=== PATIENT | female | born 1990 | race American Indian/Alaskan Native ===

== ENCOUNTER 2019-07-20 18:19 | Emergency (ER) | payer MEDICAID ==
[2019-07-20 18:47] VITALS: BP 151/97
--- NOTE | 2019-07-20 18:49 | Emergency Department Report ---
Blank Doc - Documentation Documentation: 29-year-old female that presents with SOB, cough, and body aches with fever and chills. This initial assessment/diagnostic orders/clinical plan/treatment(s) is/are subject to change based on patient's health status, clinical progression and re- assessment by fellow clinical providers in the ED. Further treatment and workup at subsequent clinical providers discretion. Patient/guardians urged not to elope from the ED as their condition may be serious if not clinically assessed and managed. Initial orders include: 1- Patient sent to [facility] for further evaluation and treatment 2- cxr 3- flu swab 4- motrin-RN to repeat vitals
[2019-07-20] MEDS ORDERED: ACETAMINOPHEN 325 MG TAB PO ONE (18:50)
--- NOTE | 2019-07-20 19:45 | XRay Report ---
CHEST PA AND LATERAL VIEWS INDICATION: cough. COMPARISON: None. FINDINGS: Support devices: None. Heart: Within normal limits. Lungs/Pleura: No acute pulmonary or pleural findings. IMPRESSION: 1. No acute findings. Signer Name: Juan Khan MD Signed: 07/20/2019 7:40 PM Workstation Name: [id number]
--- NOTE | 2019-07-20 20:04 | Emergency Department Report ---
- General Chief Complaint: Upper Respiratory Infection Stated Complaint: DRY COUGH/SOB Time Seen by Provider: 07/20/19 18:24 Source: patient Mode of arrival: Ambulatory Limitations: No Limitations - History of Present Illness Initial Comments: 29-year-old -[place] Citizen female patient without significant past medical history presents with complaints of 2 weeks of fatigue and sudden onset of cough, fever, shortness of breath, body aches/chills, and nausea/vomiting/diarrhea this morning. She denies any hemoptysis, chest pain, abdominal pain, recent history of travel outside the [place]/contact with individuals with recent travel, or contact with individuals who have known/suspected Covid19. Patient states she did receive a flu vaccination this year. MD Complaint: fever, cough, rhinorrhea - Related Data Previous Rx's Medication Instructions Recorded Last Taken Type Azithromycin [Zithromax TAB] 250 mg PO QDAY 5 Days #6 tablet 07/20/19 Unknown Rx Benzonatate [Tessalon Perles] 200 mg PO Q8HR #30 capsule 07/20/19 Unknown Rx Ondansetron [Zofran Odt] 4 mg PO Q8HR PRN #20 tab.rapdis 07/20/19 Unknown Rx Prednisone [predniSONE 5 mg (6-Day 5 mg PO .TAPER #1 tab.ds.pk 07/20/19 Unknown Rx Pack, 21 Tabs)] Allergies Allergy/AdvReac Type Severity Reaction Status Date / Time ibuprofen Allergy Unknown Verified 07/20/19 18:47 tramadol Allergy Unknown Verified 07/20/19 18:47 ED Review of Systems ROS: Stated complaint: DRY COUGH/SOB Other details as noted in HPI Constitutional: chills, fever, malaise, weakness. denies: diaphoresis ENT: denies: throat pain Respiratory: cough, shortness of breath Cardiovascular: denies: chest pain Gastrointestinal: nausea, vomiting, diarrhea. denies: abdominal pain Genitourinary: denies: urgency, dysuria, frequency, hematuria Musculoskeletal: denies: back pain Skin: denies: rash, lesions Neurological: headache ED Past Medical Hx - Past Medical History Previous Medical History?: No - Surgical History Past Surgical History?: No - Social History Smoking Status: Current Every Day Smoker Substance Use Type: Alcohol - Medications Home Medications: Home Medications Medication Instructions Recorded Confirmed Last Taken Type Azithromycin [Zithromax TAB] 250 mg PO QDAY 5 Days #6 tablet 07/20/19 Unknown Rx Benzonatate [Tessalon Perles] 200 mg PO Q8HR #30 capsule 07/20/19 Unknown Rx Ondansetron [Zofran Odt] 4 mg PO Q8HR PRN #20 tab.rapdis 07/20/19 Unknown Rx Prednisone [predniSONE 5 mg (6-Day 5 mg PO .TAPER #1 tab.ds.pk 07/20/19 Unknown Rx Pack, 21 Tabs)] ED Physical Exam - General Limitations: No Limitations General appearance: alert, in no apparent distress - Head Head exam: Present: atraumatic, normocephalic - Eye Eye exam: Present: normal appearance - ENT ENT exam: Present: normal orophraynx, mucous membranes moist - Neck Neck exam: Present: normal inspection, full ROM. Absent: tenderness - Respiratory Respiratory exam: Present: rhonchi. Absent: respiratory distress, rales - Cardiovascular Cardiovascular Exam: Present: regular rate, normal rhythm - GI/Abdominal GI/Abdominal exam: Present: soft. Absent: distended, tenderness - Extremities Exam Extremities exam: Present: normal inspection - Back Exam Back exam: Present: normal inspection - Neurological Exam Neurological exam: Present: alert, oriented X3 - Psychiatric Psychiatric exam: Present: normal affect, normal mood - Skin Skin exam: Present: warm, dry, intact, normal color. Absent: rash, cyanosis, diaphoretic, ecchymosis ED Course Vital Signs 07/20/19 07/20/19 07/20/19 18:45 20:05 20:18 Temperature 100.3 F H 98.8 F Pulse Rate 121 H 83 Respiratory 22 20 17 Rate Blood Pressure 151/97 O2 Sat by Pulse 100 100 Oximetry ED Medical Decision Making - Radiology Data Radiology results: report reviewed CHEST PA AND LATERAL VIEWS INDICATION: cough. COMPARISON: None. FINDINGS: Support devices: None. Heart: Within normal limits. Lungs/Pleura: No acute pulmonary or pleural findings. IMPRESSION: 1. No acute findings. - Medical Decision Making Patient here with complaints of sudden onset of fever/chills/body aches, cough, and shortness of breath today. Patient did receive a flu vaccine this season. Rapid flu was negative. Chest x-ray is normal. She denies any covid19 contact or travel risk factors. Vitals are normal. She is satting at 100% on room air. Mild rhonchi noted on exam. Patient given DuoNeb and Solu-Medrol. She states she is feeling better and less short of breath. She is well-appearing and stable for discharge home. Will treat for viral syndrome and bronchitis. Recommend follow-up with primary care provider in 3 days. Discussed strict return precautions in great detail with patient who verbalized understanding. Critical care attestation.: If time is entered above; I have spent that time in minutes in the direct care of this critically ill patient, excluding procedure time. ED Disposition Clinical Impression: Viral syndrome Acute bronchitis Qualifiers: Bronchitis organism: other organism Qualified Code(s): J20.8 - Acute bronchitis due to other specified organisms Disposition: - TO HOME OR SELFCARE Is pt being admited?: No Condition: Stable Instructions: Acute Bronchitis (ED), Viral Syndrome (ED) Prescriptions: Prednisone [predniSONE 5 mg (6-Day Pack, 21 Tabs)] 5 mg PO .TAPER #1 tab.ds.pk Benzonatate [Tessalon Perles] 200 mg PO Q8HR #30 capsule Azithromycin [Zithromax TAB] 250 mg PO QDAY 5 Days #6 tablet Ondansetron [Zofran Odt] 4 mg PO Q8HR PRN #20 tab.rapdis PRN Reason: Nausea Referrals: JIM MELCHOR [Other] - 3-5 Days Forms: Work/School Release Form(ED)
[2019-07-20] MEDS ORDERED: IPRATROPIUM/ALBUTEROL SULFATE 3 ML AMPUL.NEB IH ONE (20:06)
[2019-07-20] MEDS ORDERED: methylPREDNISolone Sod Succinate 125 MG/2 ML INJ IM ONE (20:06)
== END 2019-07-20 21:20 | disposition home or self-care (01) ==
LOC: ED 18:19
DX: J20.8 Acute bronchitis due to other specified organisms (principal); B34.9 Viral infection, unspecified; F17.200 Nicotine dependence, unspecified, uncomplicated; Z79.899 Other long term (current) drug therapy; Z79.2 Long term (current) use of antibiotics; Z88.8 Allergy status to other drugs, medicaments and biological substances
CPT/HCPCS: 71046; 87400; 94640; 96372; 99284; J2930

== ENCOUNTER 2020-08-02 11:10 | Emergency (ER) | payer MEDICAID ==
--- NOTE | 2020-08-02 13:28 | XRay Report ---
RIGHT HAND 3 VIEW(S) INDICATION / CLINICAL INFORMATION: PAIN AND SWELLING COMPARISON: None available. FINDINGS: BONES / JOINT(S): No acute fracture or subluxation. Mild arthrosis noted at the base of the fifth met acarpal. Contracture noted of the small finger. SOFT TISSUES: No significant abnormality. ADDITIONAL FINDINGS: None. Signer Name: Adam Roldan MD Signed: 08/02/2020 1:23 PM Workstation Name: [id number]
[2020-08-02] MEDS ORDERED: ACETAMINOPHEN 325 MG TAB PO ONE (13:45)
--- NOTE | 2020-08-02 13:50 | Emergency Department Report ---
ED Upper Extremity Inj HPI - General Chief Complaint: Extremity Injury, Upper Stated Complaint: MIDDLE FINGER/INJURED Time Seen by Provider: 08/02/20 13:41 Source: patient Mode of arrival: Ambulatory Limitations: No Limitations - History of Present Illness Initial Comments: Patient is a 30-year-old female presents emergency room with complaints of right middle finger injury that occurred yesterday. She states that she was playing basketball and her another person were going for the ball and she accidentally jammed her finger against a basketball. She states that she did have a fracture of this right hand approximately 5 years ago. She states that she did not have to have surgery for it. She states that she is right-hand dominant. Numbness o r weakness. She has pain with movement. No other past medical history. She has an allergy to ibuprofen and tramadol. - Related Data Previous Rx's Medication Instructions Recorded Last Taken Type Azithromycin [Zithromax TAB] 250 mg PO QDAY 5 Days #6 tablet 07/20/19 Unknown Rx Benzonatate [Tessalon Perles] 200 mg PO Q8HR #30 capsule 07/20/19 Unknown Rx Ondansetron [Zofran Odt] 4 mg PO Q8HR PRN #20 tab.rapdis 07/20/19 Unknown Rx Prednisone [predniSONE 5 mg (6-Day 5 mg PO .TAPER #1 tab.ds.pk 07/20/19 Unknown Rx Pack, 21 Tabs)] Acetaminophen [Tylenol] 650 mg PO Q8HR PRN #20 capsule 08/02/20 Unknown Rx Allergies Allergy/AdvReac Type Severity Reaction Status Date / Time ibuprofen Allergy Unknown Verified 08/02/20 12:22 tramadol Allergy Unknown Verified 08/02/20 12:22 ED Review of Systems ROS: Stated complaint: MIDDLE FINGER/INJURED Other details as noted in HPI Comment: All other systems reviewed and negative ED Past Medical Hx - Past Medical History Previous Medical History?: No - Surgical History Past Surgical History?: No - Social History Smoking Status: Never Smoker Substance Use Type: None - Medications Home Medications: Home Medications Medication Instructions Recorded Confirmed Last Taken Type Azithromycin [Zithromax TAB] 250 mg PO QDAY 5 Days #6 tablet 07/20/19 Unknown Rx Benzonatate [Tessalon Perles] 200 mg PO Q8HR #30 capsule 07/20/19 Unknown Rx Ondansetron [Zofran Odt] 4 mg PO Q8HR PRN #20 tab.rapdis 07/20/19 Unknown Rx Prednisone [predniSONE 5 mg (6-Day 5 mg PO .TAPER #1 tab.ds.pk 07/20/19 Unknown Rx Pack, 21 Tabs)] Acetaminophen [Tylenol] 650 mg PO Q8HR PRN #20 capsule 08/02/20 Unknown Rx ED Physical Exam - General Limitations: No Limitations General appearance: alert, in no apparent distress - Head Head exam: Present: atraumatic, normocephalic - Eye Eye exam: Present: normal appearance - ENT ENT exam: Present: mucous membranes moist - Respiratory Respiratory exam: Absent: respiratory distress, accessory muscle use - Extremities Exam Extremities exam: Present: other (ttp to the right proximal middle finger, no deformity, mild edema, no skin changes, FROM of the right elbow, wrist, hand, digits, no snuffbox ttp, neurovascularly intact) - Neurological Exam Neurological exam: Present: alert, oriented X3 - Psychiatric Psychiatric exam: Present: normal affect, normal mood - Skin Skin exam: Present: warm, dry, intact ED Course Vital Signs 08/02/20 08/02/20 12:24 14:37 Temperature 99.1 F Pulse Rate 91 H 60 Respiratory 20 16 Rate Blood Pressure 138/92 Blood Pressure 111/70 [Left] O2 Sat by Pulse 99 99 Oximetry ED Medical Decision Making - Radiology Data Radiology results: report reviewed Ordering Physician: ERIBERTO MARTIN MD Date of Service: 08/02/20 Procedure(s): XR hand 3+V RT Accession Number(s): [id number] cc: ERIBERTO MARTIN MD Fluoro Time In Minutes: RIGHT HAND 3 VIEW(S) INDICATION / CLINICAL INFORMATION: PAIN AND SWELLING COMPARISON: None available. FINDINGS: BONES / JOINT(S): No acute fracture or subluxation. Mild arthrosis noted at the base of the fifth metacarpal. Contracture noted of the small finger. SOFT TISSUES: No significant abnormality. ADDITIONAL FINDINGS: None. Signer Name: Oswaldo Michael MD Signed: 08/02/2020 1:23 PM Workstation Name: [id number] Transcribed By: Dictated By: OSWALDO MICHAEL Electronically Authenticated By: OSWALDO MICHAEL Signed Date/Time: 08/02/20 1323 DD/ 1321 TD/TT: - Medical Decision Making Patient is a 30-year-old female presents emergency room with complaints of right middle finger injury that occurred yesterday. She states that she was playing basketball and her another person were going for the ball and she accidentally jammed her finger against a basketball. She states that she did have a fracture of this right hand approximately 5 years ago. She states that she did not have to have surgery for it. She states that she is right-hand dominant. Numbness or weakness. She has pain with movement. No other past medical history. She has an allergy to ibuprofen and tramadol. VSS. on exam: ttp to the right proximal middle finger, no deformity, mild edema, no skin changes, FROM of the right elbow, wrist, hand, digits, no snuffbox ttp, neurovascularly intact. XR right hand: BONES / JOINT(S): No acute fracture or subluxation. Mild arthrosis noted at the base of the fifth metacarpal. Contracture noted of the small finger. SOFT TISSUES: No significant abnormality. ADDITIONAL FINDINGS: None. Discussed all results with patient and answered questions. Symptoms likely related to finger sprain. Patient placed in finger splint by nurse and remained neurovascularly intact. advised patient Please take medication as prescribed as needed. Follow-up with orthopedic doctor. Return to emergency room for new or worsening symptoms. - Differential Diagnosis Strain, sprain, fracture, dislocation, contusion, trigger finger, tendiniti Critical care attestation.: If time is entered above; I have spent that time in minutes in the direct care o f this critically ill patient, excluding procedure time. ED Disposition Clinical Impression: Finger sprain Qualifiers: Encounter type: initial encounter Finger: middle finger Sprain of finger site: unspecified site Laterality: right Qualified Code(s): S63.612A - Unspecified sprain of right middle finger, initial encounter Disposition: TO HOME OR SELFCARE Is pt being admited?: No Does the pt Need Aspirin: No Condition: Stable Instructions: Finger Sprain, Adult, [id number] Additional Instructions: Please take medication as prescribed as needed. Follow-up with orthopedic doctor. Return to emergency room for new or worsening symptoms. Prescriptions: Acetaminophen [Tylenol] 650 mg PO Q8HR PRN #20 capsule PRN Reason: pain Referrals: [facility] [Provider Group] - 2-3 Days ANGELO CORDOVA MD [Staff Physician] - 2-3 Days Time of Disposition: 13:49 Print Language: SERBIAN
[2020-08-02 14:38] VITALS: BP 111/70
== END 2020-08-02 14:39 | disposition home or self-care (01) ==
LOC: ED 11:10
DX: S63.612A Unspecified sprain of right middle finger, initial encounter (principal); Z79.2 Long term (current) use of antibiotics; Z79.899 Other long term (current) drug therapy; Z88.8 Allergy status to other drugs, medicaments and biological substances; X58.XXXA Exposure to other specified factors, initial encounter; Y93.67 Activity, basketball; Y92.89 Other specified places as the place of occurrence of the external cause; Y99.8 Other external cause status

== ENCOUNTER 2020-12-11 20:32 | Emergency (ER) | payer MEDICAID ==
[2020-12-11 22:24] VITALS: BP 130/73
--- NOTE | 2020-12-11 22:58 | XRay Report ---
Right shoulder-3 views INDICATION: Injury. COMPARISON: None. IMPRESSION: No acute osseous abnormality. Soft tissues are normal. Normal alignment. No significa nt DJD. Signer Name: Max Cutler MD Signed: 12/11/2020 10:54 PM Workstation Name: [id number]
--- NOTE | 2020-12-12 01:37 | Emergency Department Report ---
HPI - General Chief Complaint: Extremity Injury, Upper - HPI HPI: This is a 30-year-old -[place] female presents to the emergency department with a complaint of pain in the right shoulder that started after she was pulling/moving something while at work this evening. She is right-hand dominant. She denies any swelling, skin color change. She says that sometimes the pain will shoot down the right arm and has caused some tingling in her hand. She did not take anything for symptoms prior to presentation today. She denies any past medical history. ED Past Medical Hx - Past Medical History Previous Medical History?: No - Surgical History Past Surgical History?: No - Social History Smoking Status: Never Smoker Substance Use Type: None - Medications Home Medications: Home Medications Medication Instructions Recorded Confirmed Last Taken Type Azithromycin [Zithromax TAB] 250 mg PO QDAY 5 Days #6 tablet 07/20/19 Unknown Rx Benzonatate [Tessalon Perles] 200 mg PO Q8HR #30 capsule 07/20/19 Unknown Rx Ondansetron [Zofran Odt] 4 mg PO Q8HR PRN #20 tab.rapdis 07/20/19 Unknown Rx Prednisone [predniSONE 5 mg (6-Day 5 mg PO .TAPER #1 tab.ds.pk 07/20/19 Unknown Rx Pack, 21 Tabs)] Acetaminophen [Tylenol] 650 mg PO Q8HR PRN #20 capsule 08/02/20 Unknown Rx Cyclobenzaprine [Flexeril] 10 mg PO TID PRN #12 tablet 12/12/20 Unknown Rx ED Review of Systems ROS: Stated complaint: PAIN IN RT SHOULDER Other details as noted in HPI Comment: All other systems reviewed and negative Constitutional: denies: chills, fever Respiratory: denies: cough, shortness of breath Cardiovascular: denies: chest pain, palpitations Gastrointestinal: denies: abdominal pain Musculoskeletal: arthralgia, myalgia. denies: joint swelling Skin: denies: rash, lesions Neurological: denies: weakness, numbness Physical Exam - Physical Exam Vital Signs: Vital Signs 12/11/20 22:20 Temperature 98.8 F Pulse Rate 60 Respiratory 18 Rate Blood Pressure 130/73 O2 Sat by Pulse 100 Oximetry Physical Exam: GENERAL: The patient is well-developed well-nourished. HENT: Normocephalic. Atraumatic. Patient has moist mucous membranes. EYES: Extraocular motions are intact. NECK: Supple. Trachea is midline. CHEST/LUNGS: Clear to auscultation. There is no respiratory distress noted. HEART/CARDIOVASCULAR: Regular. There is no tachycardia. There is no murmur. SKIN: Skin is warm and dry. NEURO: The patient is awake, alert, and oriented. The patient is cooperative. Normal speech. MUSCULOSKELETAL: There is tenderness to palpation along the circumferential right shoulder and along the right side of the trapezius muscle posterior to the shoulder. There is no limitation to range of motion, but the patient has pain with both active and passive range of motion of the right upper extremity. Radial pulse +2/4 and capillary refill less than 2 seconds to the affected right upper extremity. ED Course Vital Signs 12/11/20 22:20 Temperature 98.8 F Pulse Rate 60 Respiratory 18 Rate Blood Pressure 130/73 O2 Sat by Pulse 100 Oximetry ED Medical Decision Making - Radiology Data Radiology results: image reviewed interpreted by me: X-ray of the right shoulder does not show any fracture, dislocation, or any acute process. - Medical Decision Making This patient presents to the emergency department with a complaint of right shoulder pain after pulling down on something or lifting something at work earlier in the evening. She is neurovascularly intact. There is reproducible tenderness to palpation along the shoulder and trapezius muscle. X-ray of the right shoulder does not show any fracture, dislocation, or any acute process. The patient was placed in a shoulder sling and given outpatient referral for orthopedist. Critical Care Time: No Critical care attestation.: If time is entered above; I have spent that time in minutes in the direct care of this critically ill patient, excluding procedure time. ED Disposition Clinical Impression: Right shoulder pain Qualifiers: Chronicity: acute Qualified Code(s): M25.511 - Pain in right shoulder Right shoulder strain Qualifiers: Encounter type: initial encounter Qualified Code(s): S46.911A - Strain of unspecified muscle, fascia and tendon at shoulder and upper arm level, right arm, initial encounter Disposition: TO HOME OR SELFCARE Is pt being admited?: No Condition: Stable Instructions: Shoulder Pain Additional Instructions: Please follow-up with an orthopedist in the next few days. I am giving you a referral for 2 different local orthopedic groups, Dr. Lozano and [facility]. You have been prescribed a medication that is sedating and therefore should not be taken prior to driving, working, and responsible for children and in no way should be mixed with alcohol of any quantity. Return to the emergency department with any worsening of your symptoms, new or concerning symptoms not addressed during this current emergency department visit, or with any acute distress. Prescriptions: Cyclobenzaprine [Flexeril] 10 mg PO TID PRN #12 tablet PRN Reason: Muscle Spasm Referrals: ANGELO LOZANO MD [Staff Physician] - 2-3 Days [facility] [Provider Group] - 2-3 Days Forms: Work/School Release Form(ED) Time of Disposition: 01:39
== END 2020-12-12 02:00 | disposition home or self-care (01) ==
LOC: ED 20:32
DX: S46.911A Strain of unspecified muscle, fascia and tendon at shoulder and upper arm level, right arm, initial encounter (principal); M25.511 Pain in right shoulder; X58.XXXA Exposure to other specified factors, initial encounter; Y93.89 Activity, other specified; Y92.89 Other specified places as the place of occurrence of the external cause; Y99.8 Other external cause status
CPT/HCPCS: 99283

== ENCOUNTER 2020-12-26 13:15 | Emergency (ER) | payer MEDICAID ==
--- NOTE | 2020-12-26 14:22 | Emergency Department Report ---
Blank Doc - Documentation Documentation: 30-year-old female that presents with left-sided chest pain, shortness of breath with radiation to left shoulder area. 1- This is a initial triage assessment/medical screening only. Full assessment and work-up will be completed once the patient is in proper hospital gown, ED b ed and in a private room setting. This initial assessment/diagnostic orders/clinical plan/ treatment(s) is/are subject to change based on pt's health status, clinical progression and re-assessment by fellow clinical providers in the ED. Further treatment and workup at subsequent clinical providers discretion. Patient/guardians urged not to elope from ED as their condition may be serious if not clinically assessed and managed. 2-cardiac work-up
[2020-12-26 14:25] VITALS: BP 146/89
--- NOTE | 2020-12-26 15:53 | XRay Report ---
CHEST 2 VIEWS INDICATION / CLINICAL INFORMATION: Chest Pain. Shortness of breath, chills. COMPARISON: 2 views of the chest from 07/20/2019. FINDINGS: SUPPORT DEVICES: None. HEART / MEDIASTINUM: No significant abnormality. LUNGS / PLEURA: No significant pulmonary abnormality. No significant pleural effusion. No pneumothora x. ADDITIONAL FINDINGS: No significant additional findings. IMPRESSION: 1. No acute abnormality of the chest. Signer Name: Jak aSrah MD Signed: 12/26/2020 3:49 PM Workstation Name: [id number]
[2020-12-26 16:04] LABS: Basophils # (Auto) 0.1 K/mm3 (0.0-0.1); Basophils % (Auto) 0.8 % (0.0-1.8); Eosinophils # (Auto) 0.1 K/mm3 (0.0-0.4); Eosinophils % (Auto) 0.7 % (0.0-4.3); Hematocrit 41.3 % (30.3-42.9); Hemoglobin 13.5 gm/dl (10.1-14.3); Lymphocytes # (Auto) 2.8 K/mm3 (1.2-5.4); Lymphocytes % (Auto) 33.5 % (13.4-35.0); Mean Corpuscular HGB Conc 33 % (30-34); Mean Corpuscular Volume 85 fl (79-97); Monocytes # (Auto) 0.5 K/mm3 (0.0-0.8); Monocytes % (Auto) 5.8 % (0.0-7.3); Platelet Count 410 K/mm3 (140-440); Red Blood Count 4.83 M/mm3 (3.65-5.03); Red Cell Distribution Width 13.4 % (13.2-15.2)
[2020-12-26 16:14] LABS: INR 0.96 (0.87-1.13)
[2020-12-26 16:15] LABS: Partial Thromboplastin Time 34.4 Sec. (24.2-36.6)
[2020-12-26 16:21] LABS: Alanine Aminotransferase 9 units/L (7-56); Albumin 4.5 g/dL (3.9-5); Blood Urea Nitrogen 7 mg/dL (7-17); Calcium 9.9 mg/dL (8.4-10.2); Hemolysis Index 8
[2020-12-26 16:22] LABS: BUN/Creatinine Ratio 10
--- NOTE | 2020-12-26 22:21 | Emergency Department Report ---
ED General Adult HPI - General Chief complaint: Chest Pain Stated complaint: CP/NUMBNESS Time Seen by Provider: 12/26/20 14:21 Source: patient Mode of arrival: Wheelchair Limitations: No Limitations - History of Present Illness Initial comments: Patient is a 30-year-old -A[place] female with no past medical history presents to the ED with complaint of acute onset persistent nausea and vomiting, diffuse body aches and pains specifically left arm pain, left lower leg pain, left hip pain, diffuse back pain and left-sided chest wall pain and epigastric pain for the last 3 days. Patient states that she was initially evaluated in this ED for nausea and vomiting and states that she has not been able to keep anything down after being discharged from the ED. Patient states that she was not discharged home on any medications for nausea and vomiting. Patient states that she also has an active lifestyle where she performs heavy lifting of weig hts and other physical training exercises. Patient states that the body aches and pains have been persistent and worse especially with the persistent nausea and vomiting. Patient however states that she has not had any nausea or vomiting in the last 24 hours but has had no appetite. Patient denies dizziness, syncope, fever, chills, shortness of breath, headache, diarrhea, dysuria, urinary frequency and urgency, vaginal bleeding, vaginal discharge, cough, nasal and sinus congestion or sore throat. MD Complaint: left arm pain; left leg pain; nausea and vomiting; left-sided chest pain -: Sudden, days(s) (3) Location: chest, abdomen Radiation: non-radiation Severity scale (0 -10): 5 Quality: aching, sharp Consistency: constant Improves with: none Worsens with: movement Associated Symptoms: denies other symptoms, chest pain, loss of appetite, malaise, nausea/vomiting. denies: confusion, cough, diaphoresis, fever/chills, headaches, rash, seizure, shortness of breath, syncope, weakness, other Treatments Prior to Arrival: none - Related Data Previous Rx's Medication Instructions Recorded Last Taken Type Azithromycin [Zithromax TAB] 250 mg PO QDAY 5 Days #6 tablet 07/20/19 Unknown Rx Benzonatate [Tessalon Perles] 200 mg PO Q8HR #30 capsule 07/20/19 Unknown Rx Prednisone [predniSONE 5 mg (6-Day 5 mg PO .TAPER #1 tab.ds.pk 07/20/19 Unknown Rx Pack, 21 Tabs)] Acetaminophen [Tylenol] 650 mg PO Q8HR PRN #20 capsule 08/02/20 Unknown Rx Cyclobenzaprine [Flexeril] 10 mg PO TID PRN #12 tablet 12/12/20 Unknown Rx Acetaminophen [Tylenol] 500 mg PO Q6HR PRN #30 tablet 12/26/20 Unknown Rx Baclofen 20 mg PO Q12H PRN #30 tablet 12/26/20 Unknown Rx Famotidine [Pepcid] 20 mg PO BID #60 tablet 12/26/20 Unknown Rx Ondansetron [Zofran ODT TAB] 4 mg PO Q8HR PRN #20 tab.rapdis 12/26/20 Unknown Rx Allergies Allergy/AdvReac Type Severity Reaction Status Date / Time ibuprofen Allergy Unknown Verified 12/26/20 14:18 tramadol Allergy Unknown Verified 12/26/20 14:18 ED Review of Systems ROS: Stated complaint: CP/NUMBNESS Other details as noted in HPI Constitutional: denies: chills, fever Eyes: denies: eye pain, eye discharge, vision change ENT: denies: ear pain, throat pain Respiratory: denies: cough, shortness of breath, wheezing Cardiovascular: chest pain (left sided chest wall pain). denies: palpitations Endocrine: no symptoms reported Gastrointestinal: nausea, vomiting. denies: abdominal pain, diarrhea Genitourinary: denies: urgency, dysuria, discharge Musculoskeletal: back pain (upper and lower back pain), arthralgia (left leg and hip pain). denies: joint swelling Skin: denies: rash, lesions Neurological: denies: headache, weakness, paresthesias Psychiatric: denies: anxiety, depression Hematological/Lymphatic: denies: easy bleeding, easy bruising ED Past Medical Hx - Past Medical History Previous Medical History?: No - Surgical History Past Surgical History?: No - Social History Smoking Status: Never Smoker Substance Use Type: None - Medications Home Medications: Home Medications Medication Instructions Recorded Confirmed Last Taken Type Azithromycin [Zithromax TAB] 250 mg PO QDAY 5 Days #6 tablet 07/20/19 Unknown Rx Benzonatate [Tessalon Perles] 200 mg PO Q8HR #30 capsule 07/20/19 Unknown Rx Prednisone [predniSONE 5 mg (6-Day 5 mg PO .TAPER #1 tab.ds.pk 07/20/19 Unknown Rx Pack, 21 Tabs)] Acetaminophen [Tylenol] 650 mg PO Q8HR PRN #20 capsule 08/02/20 Unknown Rx Cyclobenzaprine [Flexeril] 10 mg PO TID PRN #12 tablet 12/12/20 Unknown Rx Acetaminophen [Tylenol] 500 mg PO Q6HR PRN #30 tablet 12/26/20 Unknown Rx Baclofen 20 mg PO Q12H PRN #30 tablet 12/26/20 Unknown Rx Famotidine [Pepcid] 20 mg PO BID #60 tablet 12/26/20 Unknown Rx Ondansetron [Zofran ODT TAB] 4 mg PO Q8HR PRN #20 tab.rapdis 12/26/20 Unknown Rx ED Physical Exam - General Limitations: No Limitations General appearance: alert, in no apparent distress - Head Head exam: Present: atraumatic, normocephalic, normal inspection - Eye Eye exam: Present: normal appearance, PERRL, EOMI Pupils: Present: normal accommodation - ENT ENT exam: Present: normal exam, normal orophraynx, mucous membranes moist, TM's normal bilaterally, normal external ear exam - Neck Neck exam: Present: normal inspection, full ROM - Respiratory Respiratory exam: Present: normal lung sounds bilaterally, chest wall tenderness (Palpable reproducible diffuse left-sided chest wall tenderness). Absent: r espiratory distress, wheezes, rales, rhonchi, stridor, accessory muscle use, decreased breath sounds, prolonged expiratory - Cardiovascular Cardiovascular Exam: Present: regular rate, normal rhythm, normal heart sounds. Absent: systolic murmur, diastolic murmur, rubs, gallop - GI/Abdominal GI/Abdominal exam: Present: soft, normal bowel sounds. Absent: tenderness, guarding, hyperactive bowel sounds, hypoactive bowel sounds - Extremities Exam Extremities exam: Present: normal inspection, full ROM, tenderness (Palpable left shoulder and left hip tenderness), normal capillary refill - Back Exam Back exam: Present: normal inspection, full ROM, tenderness (Palpable left-sided mid posterior thoracic and lumbosacral paraspinal musculoskeletal tenderness), muscle spasm, paraspinal tenderness. Absent: CVA tenderness (R), CVA tenderness (L), vertebral tenderness - Neurological Exam Neurological exam: Present: alert, oriented X3, CN II-XII intact, normal gait, reflexes normal - Psychiatric Psychiatric exam: Present: normal affect, normal mood, anxious - Skin Skin exam: Present: warm, dry, intact, normal color. Absent: rash ED Course Vital Signs 12/26/20 14:23 Temperature 98.6 F Pulse Rate 94 H Respiratory 20 Rate Blood Pressure 146/89 O2 Sat by Pulse 100 Oximetry ED Medical Decision Making - Lab Data Result diagrams: 12/26/20 15:23 12/26/20 15:23 - EKG Data EKG shows normal: sinus rhythm Rate: normal - EKG Data Interpretation: normal EKG - Radiology Data Radiology results: report reviewed, image reviewed [facility] [address] [place] [address] XRay Report Signed Patient: JOSE PAULA MR#: [id number] : 1990 Acct:[id number] Age/Sex: 30 / F ADM Date: 12/26/20 Loc: ED Attending Dr: Ordering Physician: NAT CRANE NP Date of Service: 12/26/20 Procedure(s): XR chest routine 2V Accession Number(s): [id number] cc: NAT CRANE NP Fluoro Time In Minutes: CHEST 2 VIEWS INDICATION / CLINICAL INFORMATION: Chest Pain. Shortness of breath, chills. COMPARISON: 2 views of the chest from 07/20/2019. FINDINGS: SUPPORT DEVICES: None. HEART / MEDIASTINUM: No significant abnormality. LUNGS / PLEURA: No significant pulmonary abnormality. No significant pleural effusion. No pneumothorax. ADDITIONAL FINDINGS: No significant additional findings. IMPRESSION: 1. No acute abnormality of the chest. Signer Name: Jak Sarah MD Signed: 12/26/2020 3:49 PM Workstation Name: [id number] Transcribed By: MN Dictated By: Jak Sarah MD Electronically Authenticated By: Jak Sarah MD Signed Date/Time: 12/26/201548 DD/ 48 TD/TT: - Medical Decision Making This is a 30-year-old -Azerbaij[place] female with no past medical history presents to the ED with complaint of acute onset persistent nausea and vomiting, diffuse body aches and pains specifically left arm pain, left lower leg pain, left hip pain, diffuse back pain and left-sided chest wall pain and epigastric pain for the last 3 days. Patient states that she was initially evaluated in this ED for nausea and vomiting and states that she has not been able to keep anything down after being discharged from the ED. Patient states that she was not discharged home on any medications for nausea and vomiting. Patient states that she also has an active lifestyle where she performs heavy lifting of weights and other physical training exercises. Patient states that the body aches and pains have been persistent and worse especially with the persistent nausea and vomiting. Patient however states that she has not had any nausea or vomiting in the last 24 hours but has had no appetite. In the ED, patient is alert and oriented x3 and is not in any distress. Lab test results were reviewed and are all nonactionable. Chest x-ray showed no acute cardiopulmonary abnormalities or pneumonitis. EKG shows normal sinus rhythm with no acute ST or T wave abnormalities. Based on the history and physical exam findings, lab test results, chest x-ray and EKG reports, patient symptoms are likely due to muscle spasm or muscle strain given the patient's active lifestyle of heavy lifting of weights, also likely due to viral gastroenteritis. Patient was therefore discharged home on medications and advised to follow-up with her primary care physician in 7 to 10 days for reevaluation or return to the ED immediately if symptoms get worse. - Differential Diagnosis Muscle strain; muscle spasm; gastroenteritis; dehydration; GERD Critical care attestation.: If time is entered above; I have spent that time in minutes in the direct care of this critically ill patient, excluding procedure time. ED Disposition Clinical Impression: Spasm of thoracic back muscle, Nausea and vomiting in adult patient, Acute nonspecific chest pain with low risk of coronary artery disease GERD (gastroesophageal reflux disease) Qualifiers: Esophagitis presence: esophagitis presence not specified Qualified Code(s): K21.9 - Gastro-esophageal reflux disease without esophagitis Disposition: 01 HOME / SELF CARE / HOMELESS Is pt being admited?: No Does the pt Need Aspirin: No Condition: Stable Instructions: Chest Pain (ED), Muscle Cramps and Spasms, [id number], Nons pecific Chest Pain, Adult, [id number], Nausea and Vomiting, Adult, [id number], Gastroesophageal Reflux Disease, Adult, [id number] Additional Instructions: All lab test results were reviewed and are all nonactionable. Therefore take medications with food, drink plenty of fluids and follow-up with your primary care physician in 7 to 10 days for reevaluation. Return to the ED immediately if symptoms get worse. Prescriptions: Acetaminophen [Tylenol] 500 mg PO Q6HR PRN #30 tablet PRN Reason: Pain , Severe (7-10) Baclofen 20 mg PO Q12H PRN #30 tablet PRN Reason: Muscle Spasm Famotidine [Pepcid] 20 mg PO BID #60 tablet Ondansetron [Zofran ODT TAB] 4 mg PO Q8HR PRN #20 tab.rapdis PRN Reason: Nausea And Vomiting Referrals: [facility] [Provider Group] - 7-10 days Time of Disposition: 22:18 Print Language: MACEDONIAN
--- NOTE | 2020-12-27 10:18 | Electrocardiograph Report ---
[facility] Test Date: 2020-12-26 Test Time: 14:28:59 Pat Name: JOSE PAULA Department: Room: Gender: F Airplane Pilot: : 1990 Requested By: NAT CRANE Order Number: [id number] Reading MD: Elie Lehman Measurements Intervals [place] Rate: 81 P: 58 MT: 129 QRS: 45 QRSD: 80 T: 23 QT: 387 QTc: 449 Interpretive Statements Sinus rhythm Probable left atrial enlargement Compared to ECG 12/24/2020 19:16:47 Sinus tachycardia no longer present T-wave abnormality no longer present Electronically Signed On 12-27-2020 10:18:02 EDT by Elie Lehman
== END 2020-12-26 22:31 | disposition home or self-care (01) ==
LOC: ED 13:15
DX: M62.830 Muscle spasm of back (principal); R11.2 Nausea with vomiting, unspecified; R07.9 Chest pain, unspecified; K21.9 Gastro-esophageal reflux disease without esophagitis; Z88.5 Allergy status to narcotic agent; Z88.6 Allergy status to analgesic agent
CPT/HCPCS: 36415; 71046; 80053; 82962; 84484; 84703; 85025; 85610; 85730; 93005; 99283

== ENCOUNTER 2021-04-04 13:17 | Emergency (ER) | payer MEDICAID ==
[2021-04-04 13:34] VITALS: BP 105/68
--- NOTE | 2021-04-04 14:00 | Emergency Department Report ---
ED Headache HPI - General Chief Complaint: Extremity Injury, Upper Stated Complaint: hand injury Time Seen by Provider: 04/04/21 13:40 Source: patient - History of Present Illness Allergies/Adverse Reactions: Allergies ibuprofen Allergy (Verified 12/26/20 14:18) Unknown tramadol Allergy (Verified 12/26/20 14:18) Unknown Home Medications: Ambulatory Orders Azithromycin [Zithromax TAB] 250 mg PO QDAY 5 Days #6 tablet 07/20/19 Benzonatate [Tessalon Perles] 200 mg PO Q8HR #30 capsule 07/20/19 Prednisone [predniSONE 5 mg (6-Day Pack, 21 Tabs)] 5 mg PO .TAPER #1 tab.ds.pk 07/20/19 Acetaminophen [Tylenol] 650 mg PO Q8HR PRN #20 capsule 08/02/20 Cyclobenzaprine [Flexeril] 10 mg PO TID PRN #12 tablet 12/12/20 Acetaminophen [Tylenol] 500 mg PO Q6HR PRN #30 tablet 12/26/20 Baclofen 20 mg PO Q12H PRN #30 tablet 12/26/20 Famotidine [Pepcid] 20 mg PO BID #60 tablet 12/26/20 Ondansetron [Zofran ODT TAB] 4 mg PO Q8HR PRN #20 tab.rapdis 12/26/20 ED Review of Systems ROS: Stated complaint: hand injury Other details as noted in HPI ED Past Medical Hx - Social History Smoking Status: Never Smoker Substance Use Type: None - Medications Home Medications: Home Medications Medication Instructions Recorded Confirmed Last Taken Type Azithromycin [Zithromax TAB] 250 mg PO QDAY 5 Days #6 tablet 07/20/19 Unknown Rx Benzonatate [Tessalon Perles] 200 mg PO Q8HR #30 capsule 07/20/19 Unknown Rx Prednisone [predniSONE 5 mg (6-Day 5 mg PO .TAPER #1 tab.ds.pk 07/20/19 Unknown Rx Pack, 21 Tabs)] Acetaminophen [Tylenol] 650 mg PO Q8HR PRN #20 capsule 08/02/20 Unknown Rx Cyclobenzaprine [Flexeril] 10 mg PO TID PRN #12 tablet 12/12/20 Unknown Rx Acetaminophen [Tylenol] 500 mg PO Q6HR PRN #30 tablet 12/26/20 Unknown Rx Baclofen 20 mg PO Q12H PRN #30 tablet 12/26/20 Unknown Rx Famotidine [Pepcid] 20 mg PO BID #60 tablet 12/26/20 Unknown Rx Ondansetron [Zofran ODT TAB] 4 mg PO Q8HR PRN #20 tab.rapdis 12/26/20 Unknown Rx ED Physical Exam - General Limitations: No Limitations ED Course Vital Signs 04/04/21 04/04/21 13:29 13:46 Temperature 100.1 F H 98.9 F Pulse Rate 87 Respiratory 16 Rate Blood Pressure 105/68 O2 Sat by Pulse 100 Oximetry Critical care attestation.: If time is entered above; I have spent that time in minutes in the direct care of this critically ill patient, excluding procedure time. ED Disposition Condition: Stable
--- NOTE | 2021-04-04 14:13 | XRay Report ---
RIGHT FINGER 3 VIEWS INDICATION: rt thumb injury. COMPARISON: None. IMPRESSION: 3 views of the right thumb are presented. No acute osseous abnormality or joint patholo gy is detected. The soft tissues are unremarkable. Signer Name: Tim Gonzalez Jr, MD Signed: 04/04/2021 2:07 PM Workstation Name: [id number]
--- NOTE | 2021-04-04 15:09 | Emergency Department Report ---
Upper Extremity - [facility] Chief Complaint: Extremity Injury, Upper Stated Complaint: hand injury Time Seen by Provider: 04/04/21 13:40 Upper Extremity: Right Thumb Occurred When: 2 Days Severity: moderate Symptoms: Yes Pain with Movement, Yes Limited Range of Movement, Yes Swelling, No Deformity, No Numbness, No Weakness, No Bruising/Ecchymosis, No Laceration or Abrasion Other History: The patient was evaluated in the emergency department for symptoms described in the history of present illness. He/she was evaluated in the context of the global COVID-19 pandemic, which necessitated consideration that the patient might be at risk for infection with the virus that causes COVID-19. Institutional protocols and algorithms that pertain to the evaluation of patients at risk for COVID-19 are in a state of rapid change based on information released by regulatory bodies including the CDC and federal and state organizations. These policies and algorithms were followed during the patient's care in the emergency department. Please note that these policies, procedures and recommendations changed on a rapid basis. 31-year-old -Danish female presents to the emergency room complaining of right thumb pain for 2 days. Patient states that her thumb hit someone's knee while playing basketball. Patient states that the pain is getting worse and she is having swelling decided to come in to be evaluated. Patient denies any past medical history no surgeries no meds only allergic to ibuprofen and tramadol. ED Review of Systems ROS: Stated complaint: hand injury Other details as noted in HPI ED Past Medical Hx - Social History Smoking Status: Never Smoker Substance Use Type: None - Medications Home Medications: Home Medications Medication Instructions Recorded Confirmed Last Taken Type Azithromycin [Zithromax TAB] 250 mg PO QDAY 5 Days #6 tablet 07/20/19 Unknown Rx Benzonatate [Tessalon Perles] 200 mg PO Q8HR #30 capsule 07/20/19 Unknown Rx Prednisone [predniSONE 5 mg (6-Day 5 mg PO .TAPER #1 tab.ds.pk 07/20/19 Unknown Rx Pack, 21 Tabs)] Acetaminophen [Tylenol] 650 mg PO Q8HR PRN #20 capsule 08/02/20 Unknown Rx Cyclobenzaprine [Flexeril] 10 mg PO TID PRN #12 tablet 12/12/20 Unknown Rx Acetaminophen [Tylenol] 500 mg PO Q6HR PRN #30 tablet 12/26/20 Unknown Rx Baclofen 20 mg PO Q12H PRN #30 tablet 12/26/20 Unknown Rx Famotidine [Pepcid] 20 mg PO BID #60 tablet 12/26/20 Unknown Rx Ondansetron [Zofran ODT TAB] 4 mg PO Q8HR PRN #20 tab.rapdis 12/26/20 Unknown Rx Acetaminophen/Codeine [Tylenol 1 tab PO Q6H PRN #12 tab 04/04/21 Unknown Rx /Codeine # 3 tab] Upper Extremity Exam - Exam General: Vital signs noted. No distress. Alert and acting appropriately. Head and Torso: No HEENT Abnormality, No Neck Tenderness, No Chest/Lungs Abnormality, No Abdominal Tenderness, No Back Tenderness Shoulder Exam: Yes Normal Range of Motion in Shoulder, No Shoulder Tenderness, No Clavicle Tenderness, No Shoulder Deformity, No AC Joint Tenderness Arm Exam: No Arm/Humerus Tenderness, No Arm Deformity Elbow: No Elbow Tenderness, No Normal Range of Motion in Elbow, No Elbow Deformity Forearm: No Forearm Tenderness, No Forearm Deformity, No Pain with Pronation, No Pain with Supination Wrist: Yes Normal ROM in Wrist, No Wrist Tenderness, No Wrist Deformity, No Snuffbox Tenderness, No Pain with Axial Thumb Compression Hand: Yes Hand Tenderness (Thenar thumb), Yes Digit Tenderness (Thenar thumb), No Hand Deformity, No Normal ROM in Digit(s), No Digit(s) Deformity, No Tendon Dysfunction CMS Exam: No Broken Skin, No Normal Distal Pulses, No Normal Capillary Refill, No Normal Distal Sensation ED Course Vital Signs 04/04/21 04/04/21 13:29 13:46 Temperature 100.1 F H 98.9 F Pulse Rate 87 Respiratory 16 Rate Blood Pressure 105/68 O2 Sat by Pulse 100 Oximetry ED Medical Decision Making - Radiology Data Radiology results: report reviewed [facility] [address] [place] [address] XRay Report Signed Patient: JOSE PAULA MR#: [id number] : 1990 Acct:[id number] Age/Sex: 31 / F ADM Date: 04/04/21 Loc: ED Attending Dr: Ordering Physician: GENESIS BROOKE Date of Service: 04/04/21 Procedure(s): XR finger(s) 2+V RT Accession Number(s): [id number] cc: GENESIS BROOKE Fluoro Time In Minutes: RIGHT FINGER 3 VIEWS INDICATION: rt thumb injury. COMPARISON: None. IMPRESSION: 3 views of the right thumb are presented. No acute osseous abnormality or joint pathology is detected. The soft tissues are unremarkable. Signer Name: Tim Gonzalez Jr, MD Signed: 04/04/2021 2:07 PM Workstation Name: [id number] Transcribed By: TTR Dictated By: TIM GONZALEZ JR, MD Electronically Authenticated By: TIM GONZALEZ JR, MD Signed Date/Time: 04/04/211406 DD/ 06 TD/TT: Print Cancel - Medical Decision Making 31-year-old -Danish female presents to the emergency room complaining of right thumb pain for 2 days. Patient states that her thumb hit someone's knee while playing basketball. Patient states that the pain is getting worse and she is having swelling decided to come in to be evaluated. Patient denies any past medical history no surgeries no meds only allergic to ibuprofen and tramadol. X-ray ordered of right thumb Right thumb sprain negative x-ray. Patient will be placed in a thumb spica. Pain medication referral to orthopedics. Critical care attestation.: If time is entered above; I have spent that time in minutes in the direct care of this critically ill patient, excluding procedure time. ED Disposition Clinical Impression: Injury of thumb, right Qualifiers: Encounter type: initial encounter Qualified Code(s): S69.91XA - Unspecified injury of right wrist, hand and finger(s), initial encounter Sprain of hand, thumb, right Qualifiers: Encounter type: initial encounter Sprain of finger site: unspecified site Qualified Code(s): S63.601A - Unspecified sprain of right thumb, initial encounter Disposition: 01 HOME / SELF CARE / HOMELESS Is pt being admited?: No Does the pt Need Aspirin: No Condition: Stable Instructions: Finger Sprain (ED), Finger Sprain, Adult, [id number] Additional Instructions: Xray negative. Pain medication and wear brace. Follow up with environmental health specialist. Prescriptions: Acetaminophen/Codeine [Tylenol /Codeine # 3 tab] 1 tab PO Q6H PRN #12 tab PRN Reason: Pain , Severe (7-10) Referrals: ANGELO CORDOVA MD [Staff Physician] - 3-5 Days Forms: Work/School Release Form(ED) Time of Disposition: 15:12
== END 2021-04-04 15:25 | disposition home or self-care (01) ==
LOC: ED 13:17
DX: S63.601A Unspecified sprain of right thumb, initial encounter (principal); S69.91XA Unspecified injury of right wrist, hand and finger(s), initial encounter; W22.8XXA Striking against or struck by other objects, initial encounter; Y93.67 Activity, basketball; Y92.89 Other specified places as the place of occurrence of the external cause; Y99.8 Other external cause status

== ENCOUNTER 2021-10-21 12:30 | Emergency (ER) | payer MEDICAID ==
--- NOTE | 2021-10-21 13:58 | XRay Report ---
Right ankle 3 views INDICATION: Ankle injury FINDINGS: Talar dome appears normal. Alignment appears normal. Mild diffuse soft tissue swelling with in the ankle and foot. Talus and calcaneus appear intact. IMPRESSION: Diffuse soft tissue swelling. No acute fracture. Signer Name: Jose Stanley MD Signed: 10/21/2021 1:53 PM Workstation Name: [id number]
--- NOTE | 2021-10-21 15:35 | Emergency Department Report ---
ED General Adult HPI - General Chief complaint: Extremity Injury, Lower Stated complaint: RT FEET PAIN Time Seen by Provider: 10/21/21 14:55 Source: patient, family Mode of arrival: Wheelchair Limitations: No Limitations - History of Present Illness Initial comments: 31-year-old -[place] female patient presents with right ankle pain starting last night. Patient states another person who was very heavyset fell onto her ankle. Tylenol helps some. She also states she iced the ankle. No numbness/tingling or loss of range of motion, however pain does worsen with movement, touch, and with weightbearing Severity scale (0 -10): 8 Quality: aching Consistency: constant - Related Data Previous Rx's Medication Instructions Recorded Last Taken Type Azithromycin [Zithromax TAB] 250 mg PO QDAY 5 Days #6 tablet 07/20/19 Unknown Rx Benzonatate [Tessalon Perles] 200 mg PO Q8HR #30 capsule 07/20/19 Unknown Rx Prednisone [predniSONE 5 mg (6-Day 5 mg PO .TAPER #1 tab.ds.pk 07/20/19 Unknown Rx Pack, 21 Tabs)] Acetaminophen [Tylenol] 650 mg PO Q8HR PRN #20 capsule 08/02/20 Unknown Rx Cyclobenzaprine [Flexeril] 10 mg PO TID PRN #12 tablet 12/12/20 Unknown Rx Acetaminophen [Tylenol] 500 mg PO Q6HR PRN #30 tablet 12/26/20 Unknown Rx Baclofen 20 mg PO Q12H PRN #30 tablet 12/26/20 Unknown Rx Famotidine [Pepcid] 20 mg PO BID #60 tablet 12/26/20 Unknown Rx Ondansetron [Zofran ODT TAB] 4 mg PO Q8HR PRN #20 tab.rapdis 12/26/20 Unknown Rx Acetaminophen/Codeine [Tylenol 1 tab PO Q6H PRN #12 tab 04/04/21 Unknown Rx /Codeine # 3 tab] Acetaminophen/Codeine [Tylenol 1 tab PO Q6H PRN #10 tab 04/13/21 Unknown Rx /Codeine # 3 tab] Mupirocin [Bactroban 2% OINT] 1 applic TP TID 10 Days #1 tube 04/13/21 Unknown Rx Sulfamethoxazole/Trimethoprim 1 each PO BID 10 Days #20 tablet 04/13/21 Unknown Rx [Bactrim DS TAB] Acetaminophen/Codeine [Tylenol 1 tab PO Q8H PRN #8 tab 10/21/21 Unknown Rx /Codeine # 3 tab] predniSONE 10 mg PO BID 2 Days #4 tab 10/21/21 Unknown Rx Allergies Allergy/AdvReac Type Severity Reaction Status Date / Time ibuprofen Allergy Unknown Verified 12/26/20 14:18 tramadol Allergy Unknown Verified 12/26/20 14:18 ED Review of Systems ROS: Stated complaint: RT FEET PAIN Other details as noted in HPI Constitutional: denies: chills, fever Musculoskeletal: joint swelling, arthralgia Skin: denies: change in color Neurological: denies: numbness ED Past Medical Hx - Past Medical History Previous Medical History?: No - Surgical History Past Surgical History?: No - Social History Smoking Status: Never Smoker Substance Use Type: None - Medications Home Medications: Home Medications Medication Instructions Recorded Confirmed Last Taken Type Azithromycin [Zithromax TAB] 250 mg PO QDAY 5 Days #6 tablet 07/20/19 Unknown Rx Benzonatate [Tessalon Perles] 200 mg PO Q8HR #30 capsule 07/20/19 Unknown Rx Prednisone [predniSONE 5 mg (6-Day 5 mg PO .TAPER #1 tab.ds.pk 07/20/19 Unknown Rx Pack, 21 Tabs)] Acetaminophen [Tylenol] 650 mg PO Q8HR PRN #20 capsule 08/02/20 Unknown Rx Cyclobenzaprine [Flexeril] 10 mg PO TID PRN #12 tablet 12/12/20 Unknown Rx Acetaminophen [Tylenol] 500 mg PO Q6HR PRN #30 tablet 12/26/20 Unknown Rx Baclofen 20 mg PO Q12H PRN #30 tablet 12/26/20 Unknown Rx Famotidine [Pepcid] 20 mg PO BID #60 tablet 12/26/20 Unknown Rx Ondansetron [Zofran ODT TAB] 4 mg PO Q8HR PRN #20 tab.rapdis 12/26/20 Unknown Rx Acetaminophen/Codeine [Tylenol 1 tab PO Q6H PRN #12 tab 04/04/21 Unknown Rx /Codeine # 3 tab] Acetaminophen/Codeine [Tylenol 1 tab PO Q6H PRN #10 tab 04/13/21 Unknown Rx /Codeine # 3 tab] Mupirocin [Bactroban 2% OINT] 1 applic TP TID 10 Days #1 tube 04/13/21 Unknown Rx Sulfamethoxazole/Trimethoprim 1 each PO BID 10 Days #20 tablet 04/13/21 Unknown Rx [Bactrim DS TAB] Acetaminophen/Codeine [Tylenol 1 tab PO Q8H PRN #8 tab 10/21/21 Unknown Rx /Codeine # 3 tab] predniSONE 10 mg PO BID 2 Days #4 tab 10/21/21 Unknown Rx ED Physical Exam - General Limitations: No Limitations General appearance: alert, in no apparent distress, obese - Respiratory Respiratory exam: Absent: respiratory distress - Cardiovascular Cardiovascular Exam: Present: regular rate - Extremities Exam Extremities exam: Present: other (Tenderness to palpation noted concentrically around the right ankle without swelling, bruising, or obvious deformity; pedal pulses normal; sensation is normal; range of motion limited by pain) - Neurological Exam Neurological exam: Present: alert, oriented X3. Absent: normal gait - Psychiatric Psychiatric exam: Present: normal affect, normal mood - Skin Skin exam: Present: warm, dry, intact, normal color. Absent: rash ED Course Vital Signs 10/21/21 13:10 Temperature 97.9 F Pulse Rate 60 Respiratory 20 Rate Blood Pressure 109/76 [Right] O2 Sat by Pulse 100 Oximetry ED Medical Decision Making - Radiology Data Radiology results: report reviewed - Medical Decision Making 31-year-old -[place] female patient presents with right ankle pain starting last night. Patient states another person who was very heavyset fell onto her ankle. Tylenol helps some. She also states she iced the ankle. No numbness/tingling or loss of range of motion, however pain does worsen with movement, touch, and with weightbearing X-rays negative for any fractures. Will treat for ankle sprain with RICE method and NSAIDs. Recommend follow-up with orthopedics as needed. Strict return precautions discussed in detail with patient who verbalizes understanding Critical care attestation.: If time is entered above; I have spent that time in minutes in the direct care of this critically ill patient, excluding procedure time. ED Disposition Clinical Impression: Right ankle injury Disposition: HOME / SELF CARE / HOMELESS Is pt being admited?: No Condition: Stable Instructions: Ankle Sprain Prescriptions: predniSONE 10 mg PO BID 2 Days #4 tab Acetaminophen/Codeine [Tylenol /Codeine # 3 tab] 1 tab PO Q8H PRN #8 tab PRN Reason: Pain , Severe (7-10) Referrals: [facility] [Provider Group] - as needed
[2021-10-21 17:16] VITALS: BP 111/70
== END 2021-10-21 16:30 | disposition home or self-care (01) ==
LOC: ED 12:30
DX: S99.911A Unspecified injury of right ankle, initial encounter (principal); X58.XXXA Exposure to other specified factors, initial encounter; Y93.89 Activity, other specified; Y92.89 Other specified places as the place of occurrence of the external cause; Y99.8 Other external cause status
CPT/HCPCS: 99283